=== PATIENT | male | born 1940 | race Two or more races ===

== ENCOUNTER 2018-02-06 20:06 | Inpatient (IN) | payer BC, OTHER ==
[~2018-02-06] VITALS: Ht 172.7 cm; Wt 65.8 kg
[2018-02-06 21:26] LABS: Alanine Aminotransferase 12 U/L (16-61); Albumin 2.4 g/dL (3.4-5.0); Alkaline Phosphatase 64 U/L (45-117); Anion Gap 8 (5-15); Aspartate Aminotransferase 10 U/L (15-37); BUN/Creatinine Ratio 60.9; Bilirubin, Total 0.1 mg/dL (0.2-1.0); Blood Urea Nitrogen 56 mg/dL (7-18); Calcium 7.1 mg/dL (8.5-10.1); Carbon Dioxide 23 mmol/L (21-32); Chloride 110 mmol/L (98-107); GFR African American 103 mL/min; GFR Non-African American 85 mL/min; Glucose 136 mg/dL (74-106); Potassium 3.9 mmol/L (3.5-5.1); Sodium 141 mmol/L (136-145); Total Protein 5.3 g/dL (6.4-8.2)
[2018-02-06 21:33] LABS: Basophils # (auto) 0 uL; Basophils % (auto) 0.4 % (0.0-2.0); Eosinophils # (auto) 0.3 uL; Eosinophils % (auto) 3.4 % (0.0-7.0); Hematocrit 21.3 % (41.0-53.0); Hemoglobin 7.1 g/dL (13.5-17.5); Lymphocytes # (auto) 2.2 uL; Lymphocytes % (auto) 24.6 % (10.0-50.0); Mean Corpuscular Hemoglobin 32.6 pg (28.0-32.0); Mean Corpuscular Hgb Conc. 33.2 g/dL (32.0-36.0); Mean Corpuscular Volume 98.1 fL (80.0-100.0); Monocytes # (auto) 0.6 uL; Monocytes % (auto) 7.2 % (0.0-12.0); Neutrophils # (auto) 5.7 uL; Neutrophils % (auto) 64.4 % (37.0-80.0); Platelet Count (auto) 227 10^3/uL (140-450); Red Blood Cells 2.17 10^6/uL (4.5-5.90); Red Cell Distribution Width 13.1 % (11.8-14.3); White Blood Cell 8.9 10^3/uL (4.4-10.8)
[2018-02-06 21:43] LABS: INR 1.02 (0.9-1.15); Partial Thromboplastin Time 22.9 sec (23.78-33.04); Prothrombin Time 10.9 sec (9.27-12.13)
[2018-02-06] MEDS ORDERED: SODIUM CHLORIDE 0.9% 3,000 ML IV ONE (23:00)
[2018-02-06] MEDS ORDERED: NOREPINEPHRINE 8 MG/250ML KIT 250 ML IV SCH ×2 (23:00→23:15)
[2018-02-06 23:40] LABS: Urine Bacteria NONE SEEN /hpf (None Seen); Urine Blood 1+ /uL (Negative); Urine Mucus FEW (None Seen); Urine Specific Gravity 1.023 (1.001-1.035); Urine WBC 1 /hpf (0 - 3)
[2018-02-07 00:20] VITALS: BP 91/50
[2018-02-07 00:40] VITALS: BP 96/62
[2018-02-07] MEDS ORDERED: DIGOXIN (250MCG/ML) 2 ML AMPULE IV ONE ×2 (01:00→02:00)
[2018-02-07] MEDS ORDERED: AMIODARONE HCL (50 MG/ ML) 3 ML VIAL IV ONE ×3 (01:39→02:24)
[2018-02-07] MEDS ORDERED: AMIODARONE HCL 150 MG in D5W 5% 100 ML IV ONE (01:45)
[2018-02-07] MEDS ORDERED: AMIODARONE HCL 900 MG in DEXTROSE 500 ML IV SCH ×2 (02:30→08:08)
[2018-02-07 03:00] VITALS: BP 88/44
[2018-02-07] MEDS ORDERED: PANTOPRAZOLE 40 MG/10 ML VIAL IV ONE ×4 (05:15→10:15)
[2018-02-07 05:28] VITALS: BP 128/61
[2018-02-07] MEDS ORDERED: MORPHINE SULFATE 4 MG/ML SYR/VIAL IV PRN (05:30)
[2018-02-07] MEDS ORDERED: ONDANSETRON HCL 4 MG/2 ML VIAL IV PRN (05:30)
[2018-02-07] MEDS ORDERED: ACETAMINOPHEN 500 MG TAB PO PRN (05:30)
[2018-02-07 05:45] VITALS: BP 107/67
[2018-02-07] MEDS ORDERED: PANTOPRAZOLE 80 MG in SODIUM CHL 0.9% 60 ML IV SCH (10:00)
[2018-02-07] MEDS ORDERED: PANTOPRAZOLE 40 MG/10 ML VIAL IV SCH (10:00)
[2018-02-07 15:56] LABS: Basophils # (auto) 0.1 uL; Eosinophils # (auto) 0.1 uL; Lymphocytes # (auto) 2.9 uL; Monocytes # (auto) 1.1 uL; Neutrophils # (auto) 7.8 uL; Nucleated Red Blood Cells % 0.1 %; White Blood Cell 11.9 10^3/uL (4.4-10.8)
[2018-02-07 15:58] LABS: Basophils % (auto) 0.4 % (0.0-2.0); Hematocrit 23.6 % (41.0-53.0); Hemoglobin 8.1 g/dL (13.5-17.5); Mean Corpuscular Hemoglobin 31.9 pg (28.0-32.0); Mean Corpuscular Hgb Conc. 34.6 g/dL (32.0-36.0); Mean Corpuscular Volume 92.2 fL (80.0-100.0); Monocytes % (auto) 9.1 % (0.0-12.0); Neutrophils % (auto) 65.5 % (37.0-80.0); Platelet Count (auto) 180 10^3/uL (140-450); Red Blood Cells 2.55 10^6/uL (4.5-5.90)
[2018-02-07 16:16] LABS: Albumin 2.6 g/dL (3.4-5.0); BUN/Creatinine Ratio 57.4; Bilirubin, Total 0.5 mg/dL (0.2-1.0); Calcium 7.4 mg/dL (8.5-10.1); Potassium 4.1 mmol/L (3.5-5.1); Total Protein 5.4 g/dL (6.4-8.2)
[2018-02-07 16:47] VITALS: BP 114/51
== END 2018-02-07 17:00 | disposition short-term general hospital (02) | DRG 377 ==
LOC: EDBD 20:06 → ER 20:06 → TELE 20:07
PROVIDERS: ADMIT Nurse Practitioner Family; ATTEND Family Medicine
PROC: 06HM33Z Insertion of Infusion Device into Right Femoral Vein, Percutaneous Approach (ICD-10-PCS; 2018-02-06)
PROC: 30233N1 Transfusion of Nonautologous Red Blood Cells into Peripheral Vein, Percutaneous Approach (ICD-10-PCS; principal; 2018-02-07)
DX: K92.2 Gastrointestinal hemorrhage, unspecified (principal); R57.1 Hypovolemic shock; I95.9 Hypotension, unspecified; D50.0 Iron deficiency anemia secondary to blood loss (chronic); F17.210 Nicotine dependence, cigarettes, uncomplicated; I48.91 Unspecified atrial fibrillation; I70.0 Atherosclerosis of aorta; J84.10 Pulmonary fibrosis, unspecified; K57.90 Diverticulosis of intestine, part unspecified, without perforation or abscess without bleeding; M41.9 Scoliosis, unspecified; M48.02 Spinal stenosis, cervical region; R91.1 Solitary pulmonary nodule; Z90.49 Acquired absence of other specified parts of digestive tract
CPT/HCPCS: 36415; 36430; 36556; 36600; 51702; 70450; 72125; 74176; 80053; 80061; 81001; 82607; 82805; 83605; 83735; 83880; 84443; 84484; 85025; 85610; 85730; 86850; 86900; 86901; 86920; 93005; 96365; 96375; 99291; C1751; C9113; J7060